=== PATIENT | female | born 1955 | race Caucasian/White ===

== ENCOUNTER → 2018-10-31 | Outpatient (CLI) | payer OTHER | LOC: CAT 07:44 | DX: J98.11 Atelectasis (principal); J47.9 Bronchiectasis, uncomplicated; J18.9 Pneumonia, unspecified organism; R91.1 Solitary pulmonary nodule; M25.78 Osteophyte, vertebrae; Z85.118 Personal history of other malignant neoplasm of bronchus and lung; Z90.49 Acquired absence of other specified parts of digestive tract ==

== ENCOUNTER 2018-11-25 05:41 | Outpatient (CLI) | payer OTHER ==
[~2018-11-25] VITALS: Ht 167.6 cm; Wt 71.7 kg
[~2018-11-25 05:41] MED LIST: ASPIRIN EC325 M1 PO; EAC VAG; ESTROGEN PO; GLUCOSAMINE HC500 MG PO; IBUPROFEN 200200 M1 PO; ONDANSETRON HCL4 M2 PO; PRENATAL PO; PROTONIX40 M1 PO; TESSALON PERLE100 MG PO
--- NOTE | 2018-11-26 16:06 | PATH ---
[facility] [address] [place] [address] PATHOLOGY RPT PROCEDURE Name: EMMA FLANNERY Room #: DEP Blaire ..#: [id number] ������������������ Admission: 11/25/18 ������������������ Date of : 51 Discharge: 11/25/18 Report #: [id number] Path Case #: [id number] Note LCA Accession Number: [id number] TESTS RESULT FLAG UNITS REF RANGE LAB Clinician Provided Cytology Information No. of containers..01 Other (Miscellaneous) Source: RLL BAL DIAGNOSIS: RLL BAL NEGATIVE FOR MALIGNANT CELLS. REACTIVE BRONCHIAL CELLS ARE PRESENT. PULMONARY MACROPHAGES (DUST CELLS) ARE PRESENT. Signed out by: Kylah Fried MD, Pathologist NPI- [id number] Performed by: Edmond Garza, City Mail Carrier ([facility]) Gross description: 01 10ML, PINK, CLOUDY /LCS FLAG LEGEND: L-Low Normal,H-High Normal,LL-Alert Low,HH-Alert High <-Panic Low,>-Panic High,A-Abnormal,AA-Critical Abnormal Performed at: [address] [place] [address] Zechariah Schulte MD, [address] [address] Kylah Fried MD, Performed at: [address], [place], [place] [id number] MD Zechariah Schulte MD Phone: [phone]
--- NOTE | 2018-11-26 16:06 | PATH ---
[facility] [address] [place] [address] PATHOLOGY RPT PROCEDURE Name: EMMA FLANNERY Room #: DEP ROLY ..#: [id number] ������������������ Admission: 11/25/18 ������������������ Date of : 51 Discharge: 11/25/18 Report #: [id number] Path Case #: [id number] Note LCA Accession Number: [id number] TESTS RESULT FLAG UNITS REF RANGE LAB Clinician Provided Cytology Information No. of containers..01 Other (Miscellaneous) Source: CYTO BRUSHTIP DIAGNOSIS: 02 BRONCHIAL BRUSHING, CYTO BRUSHTIP NEGATIVE FOR MALIGNANT CELLS. REACTIVE BRONCHIAL CELLS ARE PRESENT. PULMONARY MACROPHAGES (DUST CELLS) ARE PRESENT. Signed out by: Kylah Fried MD, Pathologist NPI- [id number] Performed by: Edmond Garza, Sales Development Coordinator ([facility]) Gross description: 01 20ML, COLORLESS, CLEAR /LCS FLAG LEGEND: L-Low Normal,H-High Normal,LL-Alert Low,HH-Alert High <-Panic Low,>-Panic High,A-Abnormal,AA-Critical Abnormal Performed at: [address] [place] [address] Zechariah Schulte MD, [address] [address] Kylah Fried MD, Performed at: [address], [place], [place] [id number] MD Zechariah Schutle MD Phone: [phone]
--- NOTE | 2018-11-27 10:09 | PATH ---
[facility] [address] [place] [address] PATHOLOGY RPT PROCEDURE Name: EMMA FLANNERY Room #: DEP [facility]..#: [id number] ������������������ Admission: 11/25/18 ������������������ Date of : 51 Discharge: 11/25/18 Report #: [id number] Path Case #: [id number] Note LCA Accession Number: [id number] TESTS RESULT FLAG UNITS REF RANGE LAB Clinician Provided Cytology Information No. of containers..01 Other (Miscellaneous) Source: BRONCH BRUSHING DIAGNOSIS: 02 BRONCH BRUSHING NEGATIVE FOR MALIGNANT CELLS. REACTIVE BRONCHIAL CELLS ARE PRESENT. PULMONARY MACROPHAGES (DUST CELLS) ARE PRESENT. Signed out by: 02 Kylah Fried MD, Pathologist NPI- [id number] Performed by: 01 Edmond Garza, Culture Manager ([facility]) FLAG LEGEND: L-Low Normal,H-High Normal,LL-Alert Low,HH-Alert High <-Panic Low,>-Panic High,A-Abnormal,AA-Critical Abnormal Performed at: [address] [place] [address] Zechariah Schulte MD, [address] [address] Kylah Fried MD, Specimen Comment: A courtesy copy of this report has been sent to Specimen Comment: [phone]. Specimen Comment: Report sent to Specimen Comment: A duplicate report has been generated due to demographic updates. Performed at: [address], [place], [place] [id number] MD Zechariah Schulte MD Phone: [phone]
== END 2018-11-25 10:15 | disposition home or self-care (01) ==
LOC: CATH 05:41 → TBA 05:41 → CATH 08:08 → GI 10:31
DX: J98.4 Other disorders of lung (principal); K21.9 Gastro-esophageal reflux disease without esophagitis; Z85.118 Personal history of other malignant neoplasm of bronchus and lung; Z90.49 Acquired absence of other specified parts of digestive tract; Z98.890 Other specified postprocedural states; Z79.899 Other long term (current) drug therapy; Z79.891 Long term (current) use of opiate analgesic
CPT/HCPCS: 62110; 62900; 70005

== ENCOUNTER → 2019-05-25 | Outpatient (CLI) | payer OTHER | LOC: RAD 08:58 | DX: M41.86 Other forms of scoliosis, lumbar region (principal) ==

== ENCOUNTER → 2019-06-04 | Outpatient (CLI) | payer OTHER | LOC: MRI 07:23 | DX: M51.26 Other intervertebral disc displacement, lumbar region (principal); M48.061 Spinal stenosis, lumbar region without neurogenic claudication; M25.78 Osteophyte, vertebrae; M89.38 Hypertrophy of bone, other site ==

== ENCOUNTER → 2019-06-19 | Outpatient (CLI) | payer OTHER ==
[~2019-06-19] VITALS: Ht 165.1 cm; Wt 73.5 kg
[~2019-06-19] MED LIST changes: +AMLODIPINE BESY10 MG PO; +VENTOLIN HFA 1818 GM INH
--- NOTE | ~2019-06-19 | HPC ---
[facility] [place] [address] PAIN MANAGEMENT CONSULTATION Name: EMMA FLANNERY Room #: REG [facility] Amadou#: [id number] Admission: 06/19/19 Attend Phys: Meron Juarez MD Discharge: Date of : 51 Report #: [id number] THIS REPORT FOR: //name// CC: Meron Torres DATE OF SERVICE: 06/19/2019 CHIEF COMPLAINT: Right hip and low back pain travels down the right knee, which is sharp, tingling and causes muscle cramps. HISTORY: The patient is a 64-year-old female who has been referred to the Pain Clinic for evaluation of back and leg pain. The patient states that in about 01/2019, she started to notice some increased pain and discomfort in her right hip, low back with pain that radiates down to her leg. She is normally pretty active. She engages in ballroom dancing bicycles and is quite active. She has noticed that use of nonsteroidal anti-inflammatory medications have not been significantly helpful. She has not tried narcotic medications. She has used some muscle relaxants because these caused her to feel sleepy. She has a history of gastric bypass and therefore she is unable to take significant amount of nonsteroidal anti-inflammatory medications. Notes that this pain involving her right hip with pain that radiates down the lateral portion of her leg into the knee. She has been experiencing some muscle cramps. She has tried Skelaxin as well as gabapentin. She has had surgery on her back. This was in 1992. It involves the L5 and S1 area. She has had physical therapy, did not notice any significant change. Chiropractic treatment has not caused significant benefit. She has used cupping. Has some pain and discomfort in the right thoracic area as well. Describes as constant, shooting, cramping, aching, sharp and stabbing. Rates it as a 10/10 at its worst. It is a 7/10 today. ALLERGIES: PENICILLIN, ANTIFUNGALS. CURRENT MEDICATIONS: Albuterol 2 puffs p.r.n., amlodipine 10 mg, glucosamine 500 mg, ibuprofen 200 mg p.r.n., vitamins, aspirin 325 mg at bedtime, vaginal cream, estrogen 0.5 tabs b.i.d., Zofran 4 mg for nausea and Protonix 40 mg. PAST MEDICAL HISTORY: Hypertension, lung disease, gallbladder disease, some stomach problems, joint disease, and cancer. PAST SURGICAL HISTORY: Tonsils and adenoids 1957, 1983, hysterectomy in 1996, laparoscopic cholecystectomy 1999, lumbar laminectomy L5-S1 1992, gastric bypass in 2015, and lobectomy in 2006. 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 Pain has been problematic in the past and caused her to be off from work up to [address] [place] [address] PAIN MANAGEMENT CONSULTATION Name: EMMA FLANNERY [facility] [id number] Admission: 06/19/19 Attend Phys: Meron Juarez MD Discharge: Date of : 51 Report #: [id number]. REVIEW OF SYSTEMS: Generally good health, fever, night sweats, fatigue, wears glasses, glaucoma/cataracts, chronic sinus problems, shortness of breath while lying flat, frequent coughs, asthma/wheezing, varicose veins, numbness and tingling sensation, insomnia, and cold intolerance. LABORATORY DATA: MRI of the lumbar spine dated 06/04/2019: 1. L2-L3, there is a circumferential disk bulge with facet hypertrophy and ligamentum flavum hypertrophy. There is no sequela. 2. L3-L4, there is diffuse circumferential bulging with a right posterior paracentral disk protrusion best seen on series 8. 3. This compresses the L4 nerve root as it exits the thecal sac, the L3-L4. The L3 nerve root is unaffected. There is some slight bilateral foraminal tapering and diffuse osteophytosis is present in association with the disk bulging. There is a severe facet hypertrophy and ligamentum flavum hypertrophy. There is central canal stenosis at the AP diameter of the midline of the thecal sac at 9 mm. A small annular tears associated with the right lateral disk. 4. L4-L5, there is circumferential disk bulge with right posterior lateral annular tear suspected and slight associated protrusion. This does not appear to be contacting the L4 nerve root, which is exiting the neural foramen there. There is severe facet hypertrophy and ligamentum flavum hypertrophy with central canal stenosis of approximately 9 mm. There is bilateral neural foraminal narrowing. 5. At L5-S1, there is a chronic posterior disk bulge protrusion/extrusion in the midline slightly compressing the anterior thecal sac with circumferential disk bulge and marginal osteophytosis. There is severe facet hypertrophy and ligamentum flavum hypertrophy. There has been a previous right laminectomy at this level and the AP diameter of the thecal sac is within normal limits. The L5-S1 nerve roots appear unaffected bilaterally. PAIN CLINIC ASSESSMENT/PQRS: 1. The patient has had back surgery. 2. The patient is not being treated for rheumatoid arthritis. 3. Height 5 feet 5 inches, weight 162 pounds, BMI is 27.0. 4. Vital signs: Blood pressure 155/76, pulse 85, respiratory rate 16, room air saturation 99%. 5. Pain intensity, 7/10. 6. Fall history: The patient has not fallen in the last 3 months. 7. Blood thinner. The patient is not on a blood thinning medication. 8. Hypertension. The patient is being treated for hypertension. 9. Opioids greater than 6 weeks. The patient is not being treated with opioids. 10. Risk assessment tool, low for opioid use. 11. Functional assessment tool, 49/70. 12. Recreational drug use. The patient denies. [address] [address] PAIN MANAGEMENT CONSULTATION Name: EMMA FLANNERY Room #: REG [facility]#: [id number] Admission: 06/19/19 Attend Phys: Meron Juarez MD Discharge: Date of : 51 Report #: [id number] 13. Tobacco: The patient has never smoked. 14. Alcohol: The patient drinks 2-3 alcoholic beverages daily. PHYSICAL EXAMINATION: GENERAL: The patient is a well-developed, well-nourished white female. Appears her stated age. She is alert and oriented x 3. Her affect is appropriate. Speech is fluent. HEENT: Normocephalic, atraumatic. Extraocular eye muscles intact. Sclerae nonicteric. Mucous membranes are moist. NECK: Without adenopathy or JVD. HEART: Regular rate. LUNGS: Generally clear to auscultation. Some decreased lung sounds in the right upper lobe. ABDOMEN: Nontender. EXTREMITIES: Upper extremity muscle strength is judged to be 5/5 for the major muscle groups in the upper extremity. Deep tendon reflexes are trace for the biceps and triceps. The patient is without significant kyphosis, scoliosis or lordosis. Well-healed scar in the lower portion of her back at the lumbar area. Left and right lateral bending did cause some increased low back discomfort. Rotation to the right cause some increased discomfort. The patient noted lumbar extension caused some increased pain that radiated down the posterior portion of her right leg. Anterior and posterior spring tests were negative. Demarco sign was negative. The patient has experienced some numbness that radiates down into the anterior portion of her calf into her foot with tingling and muscle cramping. IMPRESSION: 1. Lumbar radiculopathy, L4-L5 dermatomal distribution on the right. 2. Hypertension. 3. Lung disease. 4. Gallbladder disease. 5. Some stomach problems. 6. Joint disease. 7. Cancer. RECOMMENDATIONS: We discussed treatment options with the patient. The patient has clinical findings consistent with lumbar radiculopathy involving the L4-L5 dermatomal distribution. She has had lumbar surgery in the past in the L5-S1 area. Notes that the pain causes numbness and tingling in the L4-L5 dermatomal distribution with sensory changes. Notes a shooting pain, has been experiencing cramping pain. Rates the pain as a 10/10 when it is quite problematic. This has sharp and stabbing sensation as well. The patient has undergone physical therapy. She has had an MRI. She takes ibuprofen/nonsteroidal anti-inflammatory medications with limited to the use of these because of her gastric bypass. She would like to proceed with an epidural steroid injection. I think that would be the appropriate treatment at this juncture. [facility] and [address] [address] PAIN MANAGEMENT CONSULTATION Name: EMMA FLANNERY Room #: REG ROLY Tobar#: [id number] Admission: 06/19/19 Attend Phys: Meron Juarez MD Discharge: Date of : 51 Report #: [id number] benefits of the procedure had been discussed with the patient. They include but are not limited to infection, worsening of pain, no improvement in pain, nerve damage, spinal headache, bleeding, trauma with muscle paralysis. The patient elects to proceed. We will have the patient follow up in the near future after she has been precertified by her insurance marketing specialist. She will then undergo an epidural steroid injection. We would like to thank you for letting us participate in her care. We hope she continues to improve. By: [id number] Meron Juarez MD /meena
[2019-06-19 12:39] VITALS: BP 156/77
--- NOTE | 2019-06-19 13:00 | NUR ---
Pain Clinic Assessment: 1. History of Osteoarthritis: BACK History of Rheumatoid Arthritis: Not Applicable 2. Height: 5 ft. 5 in. 165.1 cm. Weight: 162.0 lb. oz. 73.483 kg. Patient's BMI: 27.0 3. Vital Signs: BP: 156/77 Pulse: 85 Resp: 16 Temp: 02 Sat: 99 ECG Mon: 4. Pain Intensity: 7 5. Fall Risk: Dizziness: Y Needs help standing or walking: N Fallen in the last 3 months: N Fall risk comments: 6. Patient on Blood Thinner: None 7. History of Hypertension: Y 8. Opioid Therapy greater than 6 weeks: N Opiate Contract Signed: 9. Risk Assessment Tool Provided: LOW RISK 0/3 10. Functional Assessment Tool: 49/70 11. Recreational Drug Use: Never Drug Type: Tobacco Use: Never Smoker Tobacco Type: Amount or Packs/day: How Many Years: Alcohol Use: Yes Frequency: Daily Quant: 2-3
== END ==
LOC: PAIN 09:00
DX: M54.16 Radiculopathy, lumbar region (principal); I10 Essential (primary) hypertension; J98.4 Other disorders of lung; M25.9 Joint disorder, unspecified; C80.1 Malignant (primary) neoplasm, unspecified; Z88.8 Allergy status to other drugs, medicaments and biological substances; Z79.899 Other long term (current) drug therapy; Z88.0 Allergy status to penicillin

== ENCOUNTER → 2019-07-29 | Outpatient (CLI) | payer OTHER ==
[~2019-07-29] VITALS: Ht 165.1 cm; Wt 73.6 kg
[2019-07-29 13:48] VITALS: BP 145/92
--- NOTE | 2019-07-29 13:57 | NUR ---
Pain Clinic Assessment: 1. History of Osteoarthritis: BACK History of Rheumatoid Arthritis: Not Applicable 2. Height: 5 ft. 5 in. 165.1 cm. Weight: 162.2 lb. oz. 73.573 kg. Patient's BMI: 27.0 3. Vital Signs: BP: 145/92 Pulse: 89 Resp: 14 Temp: 02 Sat: 99 ECG Mon: 4. Pain Intensity: 8 5. Fall Risk: Dizziness: N Needs help standing or walking: N Fallen in the last 3 months: N Fall risk comments: 6. Patient on Blood Thinner: None 7. History of Hypertension: Y 8. Opioid Therapy greater than 6 weeks: N Opiate Contract Signed: 9. Risk Assessment Tool Provided: LOW RISK 0/3 10. Functional Assessment Tool: 49/70 11. Recreational Drug Use: Never Drug Type: Tobacco Use: Never Smoker Tobacco Type: Amount or Packs/day: How Many Years: Alcohol Use: Yes Frequency: Quant:
--- NOTE | 2019-08-28 08:25 | HPC ---
[facility] [address] [place] [address] PAIN MANAGEMENT CONSULTATION Name: EMMA FLANNERY Room #: REG J[facility]laire Tobar#: [id number] Admission: 07/29/19 Attend Phys: Meron Juarez MD Discharge: Date of : 51 Report #: [id number] THIS REPORT FOR: //name// CC: Meron Torres DATE OF SERVICE: 07/29/2019 CHIEF COMPLAINT: Pain in the low back that goes down to the right buttocks. HISTORY: The patient is a 64-year-old female who has been seen in the pain clinic because of chronic pain. She has been having pain, which has been problematic since 12/2018. She has been having pain that radiates down into her leg. She is quite active with ballroom dancing, bicycling, and other activities. She has undergone an injection in the mid back area and noted some improvement in her pain. She has been using nonsteroidal anti-inflammatory medications. She has a history of back surgery. This was in 1992. Today, she has returned because of the pain that has been problematic in the anterior portion of her leg on the right side. Epidural steroid injection was beneficial and she has returned today with hopes of undergoing another injection to help decrease the pain and discomfort. ALLERGIES: PENICILLIN. CURRENT MEDICATIONS: Antifungals. PAIN CLINIC ASSESSMENT AND PQRS: 1. The patient has had back surgery. She is not being treated for rheumatoid arthritis. 2. Height 5 feet 5 inches, weight 162 pounds, BMI is 27. 3. Vital signs: Blood pressure 145/92, pulse 89, respiratory rate 14, room air saturation 99%. 4. Pain intensity, 10. 5. Fall risk, the patient has not fallen in the last 3 months. 6. Blood thinner, the patient is not on a blood thinning medication. 7. Risk assessment tool, low for opioid use. 8. Functional assessment tool, 49/70. 9. Recreational drugs, the patient denies. 10. Tobacco, the patient has never smoked. 11. Alcohol, the patient occasionally drinks alcoholic beverages. PHYSICAL EXAMINATION: GENERAL: The patient is a well-developed, well-nourished, white female. Appears her stated age. She is alert and oriented x 3. Her affect is appropriate. Speech is fluent. HEENT: Normocephalic, atraumatic. Extraocular [place] [address] PAIN MANAGEMENT CONSULTATION Name: EMMA FLANNERY Room #: REG CL[facility] Amadou#: [id number] Admission: 07/29/19 Attend Phys: Meron Juarez MD Discharge: Date of : 51 Report #: [id number] nonicteric. Mucous membranes are moist. NECK: Without adenopathy or JVD. LUNGS: Clear to auscultation. ABDOMEN: Nontender. EXTREMITIES: Upper extremity muscle strength judged to be 5/5 for the major muscle groups in the upper extremity. The patient is without significant scoliosis, kyphosis or lordosis. The patient has a well-healed scar in the upper portion of her back. She notes some discomfort with rotation to the right. The patient has pain and discomfort in the lower portion of her back that mirrors the L4-L5 dermatomal distribution. IMPRESSION: 1. Lumbar radiculopathy, L4-L5. 2. Hypertension. 3. Lung disease. 4. Gallbladder disease. 5. Stomach problems. 6. Joint disease. 7. Cancer. RECOMMENDATIONS: We discussed treatment options with the patient. Risks and benefits of an epidural steroid injection were discussed. Possible complications of the procedure, which could include but are not limited to infection, worsening pain, no improvement in pain and the patient elects to proceed. PROCEDURE NOTE: The patient has pain in the low back area. She also has had pain in the anterior portion of her thigh. This is in the L2-L3 area. The last injection at this site was beneficial and the patient feels that the anterior pain in the L2-L3 area is most problematic today. We would therefore proceed with an epidural steroid injection at the L2-L3 area. The patient was then taken to the procedure area. She was then assisted in getting on the examination table. Her back was sterilely prepped with a Betadine solution. It was allowed to dry. A 17-gauge Tuohy with loss of resistance technique was used to gain access to the L2-L3 interspace and the L1-L2 interspace. This area had been infiltrated with 0.25% bupivacaine. A 17-gauge Tuohy with loss of resistance technique was used to gain access to the epidural space. There was no CSF, heme or paresthesia. Total of 80 mg Depo-Medrol, 40 mg triamcinolone and 2 mL of 0.25% bupivacaine was injected. The patient tolerated the procedure well. There were no complications. Remained in the pain clinic for an appropriate amount of time. [facility] [address] [place] [address] PAIN MANAGEMENT CONSULTATION Name: EMMA FLANNERY Room #: REG ROLY Tobar#: [id number] Admission: 07/29/19 Attend Phys: Meron Juarez MD Discharge: Date of : 51 Report #: [id number] We would like to thank you for letting us participate in her care. We hope she continues to improve. The patient will call us if she has any concerns. <ELECTRONICALLY SIGNED> By: Meron Juarez MD 08/28/19 0825 [id number] Meron Juarez MD /[facility]
== END | disposition home or self-care (01) ==
LOC: PAIN 13:12
DX: M54.5 Low back pain (principal); G89.29 Other chronic pain; Z88.0 Allergy status to penicillin; Z88.8 Allergy status to other drugs, medicaments and biological substances; Z79.82 Long term (current) use of aspirin; Z79.899 Other long term (current) drug therapy

== ENCOUNTER → 2019-09-16 | Outpatient (CLI) | payer OTHER ==
[~2019-09-16] VITALS: Ht 165.1 cm; Wt 71.3 kg
[~2019-09-16] MED LIST changes: +TRELEGY ELLIPT1 EACH INH
[2019-09-16 08:45] VITALS: BP 133/79
--- NOTE | 2019-09-16 09:11 | NUR ---
Pain Clinic Assessment: 1. History of Osteoarthritis: BACK History of Rheumatoid Arthritis: Not Applicable 2. Height: 5 ft. 5 in. 165.1 cm. Weight: 157.2 lb. oz. 71.305 kg. Patient's BMI: 26.2 3. Vital Signs: BP: 133/79 Pulse: 85 Resp: 14 Temp: 02 Sat: 100 ECG Mon: 4. Pain Intensity: 8 5. Fall Risk: Dizziness: N Needs help standing or walking: N Fallen in the last 3 months: N Fall risk comments: 6. Patient on Blood Thinner: None 7. History of Hypertension: Y 8. Opioid Therapy greater than 6 weeks: N Opiate Contract Signed: 9. Risk Assessment Tool Provided: LOW RISK 0/3 10. Functional Assessment Tool: 49/70 11. Recreational Drug Use: Never Drug Type: Tobacco Use: Never Smoker Tobacco Type: Amount or Packs/day: How Many Years: Alcohol Use: Yes Frequency: Quant:
--- NOTE | 2019-09-21 19:28 | HPC ---
[facility] [place] [address] PAIN MANAGEMENT CONSULTATION Name: EMMA FLANNERY Room #: REG Blaire Tobar#: [id number] Admission: 09/16/19 Attend Phys: Meron Juarez MD Discharge: Date of : 51 Report #: [id number] THIS REPORT FOR: //name// CC: Meron Torres DATE OF SERVICE: 09/16/2019 CHIEF COMPLAINT: The pain in the right groin area has improved, but I am still having pain down in the right leg. HISTORY: The patient is a 64-year-old female who has been seen in the pain clinic because of pain. She noticed onset of her discomfort in 12/2018. Pain was radiating down into her right leg into the groin area and anterior thigh. She underwent an epidural steroid injection at the last visit. She noticed that has improved pain and discomfort she was having in the groin and anterior thigh area. She is still having pain down the right lateral portion of her thigh with numbness, weakness and tenderness. She has returned today with the hopes of undergoing another injection. She feels that the injection in this area would be helpful and decreasing the amount of pain and discomfort. She states that because of the last injection. She is able to ambulate easier. She looks less like she is walking cripple. ALLERGIES: PENICILLIN. MEDICATIONS: Antifungals. PAIN CLINIC AND PQRS: 1. History of osteoarthritis in the back. The patient is not being treated for rheumatoid arthritis. 2. Height 5 feet 5 inches, weight 157 pounds, BMI is 26.2. 3. Vital Signs: Blood pressure 133/79, pulse 85, respiratory rate 14, room air saturation 100%. 4. Pain intensity 05/30. 5. Fall risk. The patient has not fallen in the last 3 months. 6. Blood thinner. The patient is not on a blood thinning medication. 7. Hypertension. The patient is being treated for hypertension. 8. Opioids greater than 6 weeks. The patient is not receiving opioids on a regular basis. 9. Risk assessment tool, low for opioid use. 10. Functional assessment tool 49/70. 11. Recreational drug use: The patient denies. 12. Tobacco: The patient has never smoked. 13. Alcohol: The patient occasionally drinks alcoholic beverages. PHYSICAL EXAMINATION: [address] [address] PAIN MANAGEMENT CONSULTATION Name: EMMA FLANNERY Room #: REG [facility]#: [id number] Admission: 09/16/19 Attend Phys: Meron Juarez MD Discharge: Date of : 51 Report #: [id number] GENERAL: The patient is a well-developed, well-nourished white female. Appears her stated age. She is alert and oriented x 3. Her affect is appropriate. Speech is fluent. HEENT: Normocephalic, atraumatic. Extraocular eye muscles intact. Sclerae nonicteric. Mucous membranes are moist. NECK: Without adenopathy or JVD. LUNGS: Clear to auscultation. ABDOMEN: Nontender. EXTREMITIES: Upper extremity muscle strength judged to be 5/5 for the major muscle groups in the upper extremity. The patient has had resolution of pain and discomfort in the anterior groin area on the right and anterior thigh. Does have pain and discomfort that continues to radiate down the right lateral portion of her leg and in the area of her knee. This is in the L4-L5 dermatomal distribution. IMPRESSION: 1. Lumbar radiculopathy -- The patient is status post lumbar surgery in the past. 2. Hypertension. 3. Lung disease. 4. Gallbladder disease. 5. Stomach problems. 6. Joint disease. 7. Cancer. RECOMMENDATIONS: We discussed treatment options with the patient. Risks and benefits of an epidural steroid injection using transforaminal approach were discussed. Possible complications of the procedure, which could include, but are not limited to infection, worsening pain, no improvement in pain and the patient elects to proceed. PROCEDURE NOTE: The patient was taken to the procedure area. She was then assisted in getting on examination table. Her back was sterilely prepped with a Betadine solution. A 0.25% bupivacaine was infiltrated in the right L4-L5 interspace. After appropriate anesthetizing the area. A 20-gauge spinal needle was then advanced into the area of the transforaminal area. After appropriate placement using anterior, posterior viewing a total of 80 mg Depo-Medrol, 40 mg triamcinolone was injected. This area had been anesthetized with 0.25% bupivacaine. The patient tolerated the procedure well. There were no complications. 12 seconds of fluoroscopy time was used. The patient's pain decreased to 0 at the time of discharge. She will follow up in the future as needed. [address] [address] PAIN MANAGEMENT CONSULTATION Name: ALMA DELIAEMMA Frankie Room #: REG ROLY Tobar#: [id number] Admission: 09/16/19 Attend Phys: Meron Juarez MD Discharge: Date of : 51 Report #: [id number] We would like to thank you for letting us participate in her care. We hope she continues to improve. <ELECTRONICALLY SIGNED> By: Meron Juarez MD 09/21/19 1928 1324 1614 Meron Juarez MD /[facility]
== END | disposition home or self-care (01) ==
LOC: PAIN 09-02 10:20
DX: M54.16 Radiculopathy, lumbar region (principal); G89.29 Other chronic pain; I10 Essential (primary) hypertension; M19.90 Unspecified osteoarthritis, unspecified site; Z98.890 Other specified postprocedural states; Z79.899 Other long term (current) drug therapy; Z87.19 Personal history of other diseases of the digestive system; Z88.0 Allergy status to penicillin; Z79.82 Long term (current) use of aspirin

== ENCOUNTER → 2019-09-30 | Outpatient (CLI) | payer OTHER ==
[~2019-09-30] VITALS: Ht 165.1 cm; Wt 71.5 kg
[2019-09-30 09:56] VITALS: BP 154/90
--- NOTE | 2019-09-30 10:20 | NUR ---
Pain Clinic Assessment: 1. History of Osteoarthritis: BACK Right Lower Extremity Left Upper Extremity Left Lower Extremity Right Upper Extremity History of Rheumatoid Arthritis: Not Applicable 2. Height: 5 ft. 5 in. 165.1 cm. Weight: 157.6 lb. oz. 71.487 kg. Patient's BMI: 26.2 3. Vital Signs: BP: 154/90 Pulse: 80 Resp: 14 Temp: 02 Sat: 100 ECG Mon: 4. Pain Intensity: 7 5. Fall Risk: Dizziness: N Needs help standing or walking: N Fallen in the last 3 months: N Fall risk comments: 6. Patient on Blood Thinner: None 7. History of Hypertension: Y 8. Opioid Therapy greater than 6 weeks: N Opiate Contract Signed: 9. Risk Assessment Tool Provided: LOW RISK 0/3 10. Functional Assessment Tool: 49/70 11. Recreational Drug Use: Never Drug Type: Tobacco Use: Never Smoker Tobacco Type: Amount or Packs/day: How Many Years: Alcohol Use: Yes Frequency: Quant:
--- NOTE | 2019-10-07 13:08 | HPC ---
[facility] [address] [address] PAIN MANAGEMENT CONSULTATION Name: EMMA FLANNERY Room #: REG JACKBlaire Tobar#: [id number] Admission: 09/30/19 Attend Phys: Meron Juarez MD Discharge: Date of : 51 Report #: [id number] THIS REPORT FOR: //name// CC: Meron Torres DATE OF SERVICE: 09/30/2019 CHIEF COMPLAINT: Having pain in the right side and pain that is down in the right knee with a buzzing sensation, some numbness and weakness. HISTORY: The patient is a 64-year-old female who has been followed in the pain clinic. She has pain in the low back area. She has had back surgery in the past. She has returned today indicating that she continues to have some pain, which is problematic. Pain has been most problematic since 12/2018. Continues to have pain that radiates down into her leg. She still remains active. 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 Has some pain in the right posterior back area as well as some pain that radiates in the anterior portion near the groin area. This pain is different from that which is radiating down into her right knee. The right knee is most problematic with some numbness, tingling and sensory changes. She has returned today with hopes of undergoing an epidural steroid injection. She gleaned benefit from the last and would like to proceed with another injection to gain more benefit. ALLERGIES: PENICILLIN. CURRENT MEDICATIONS: Antifungals. PAIN CLINIC ASSESSMENT AND PQRS: 1. The patient has had back surgery. She is not being treated for rheumatoid arthritis. 2. Height 5 feet 5 inches, weight 157 pounds, BMI is 26.1. 3. Vital signs: Blood pressure 154/90, pulse 80, respiratory rate 14, room air saturation 100%. 4. Pain intensity, 7/10. 5. Fall history, the patient has not fallen in the last 3 months. 6. Blood thinner, the patient is not on a blood thinning medication. 7. Hypertension, the patient is being treated for hypertension. 8. Opioids greater than 6 weeks. The patient received medication from one source, the pain clinic. 9. Risk assessment tool, low for opioid use. 10. Functional assessment tool, 49/70. 11. Recreational drug use, the patient denies. 12. Tobacco, the patient has never smoked. 13. Alcohol, the patient occasionally drinks alcoholic beverages. [facility] [address] [place] [address] PAIN MANAGEMENT CONSULTATION Name: EMMA FLANNERY [facility] #: [facility] [id number] Admission: 09/30/19 Attend Phys: Meron Juarez MD Discharge: Date of : 51 Report #: [id number] PHYSICAL EXAMINATION: GENERAL: The patient is a well-developed, well-nourished, white female. Appears her stated age. She is alert and oriented x 3. Her affect is appropriate. Speech is fluent. HEENT: Normocephalic, atraumatic. Extraocular eye muscles intact. The patient is wearing glasses. NECK: Without adenopathy or JVD. LUNGS: Clear to auscultation. ABDOMEN: Nontender. MUSCULOSKELETAL: Upper extremity muscle strength judged to be 5/5 for the major muscle groups in the upper extremity. The patient has some pain, which was in the anterior groin area. This pain improved after the last injection. The patient does have some pain in the posterior superior iliac spine area. Palpation in this area does reproduce some triggerpoint like pain and discomfort. Notes some pain and discomfort with a trigger point like pain in the anterior superior spinal area. The patient has some pain radiates down the right lateral portion of her leg with some numbness, tingling in the L4-L5 dermatomal distribution. Has a buzzing and tingling sensation in her knee. IMPRESSION: 1. Lumbar radiculopathy, status post lumbar surgery in the past. 2. Hypertension. 3. Lung disease. 4. Gallbladder disease. 5. Stomach problems. 6. Joint disease. 7. Cancer history. RECOMMENDATIONS: We discussed treatment options with the patient. Risks and benefits of a transforaminal epidural steroid injection were again discussed. Possible complications of the procedure, which could include infection, bleeding, muscle pain, nerve damage were discussed. The patient elects to proceed. PROCEDURE NOTE: The patient was taken to the procedure area. She was then assisted in getting on examination table. Her back was sterilely prepped with a Betadine solution. A 0.25% bupivacaine was infiltrated in the right L4-L5 area. A transforaminal approach was undertaken. Fluoroscopy using anterior, posterior as well as lateral viewing were implemented. The patient tolerated the procedure well. The area was sterilely prepped. A 0.25% bupivacaine was infiltrated in the skin to numb it using a 25-gauge needle. A 20-gauge spinal needle was then advanced using the transforaminal approach into the appropriate positioning. There was no complaint of nerve damage or paresthesias. Aspiration was negative. Total of 80 mg Depo-Medrol and 3 mL of 0.25% bupivacaine was injected. The patient tolerated the procedure well. There were [facility] [address] [place] [address] PAIN MANAGEMENT CONSULTATION Name: EMMA FLANNERY Room #: REG [facility]#: [id number] Admission: 09/30/19 Attend Phys: Meron Juarez MD Discharge: Date of : 51 Report #: [id number] no complications. Her pain was described as 0 at the time of discharge. She will follow up in the future as needed. We would like to thank you for letting us participate in her care. We hope she continues to improve. <ELECTRONICALLY SIGNED> By: Meron Juarez MD 10/07/19 1308 1314 20 Meron Juarez MD /[facility]
== END | disposition home or self-care (01) ==
LOC: PAIN 06:54
DX: M54.16 Radiculopathy, lumbar region (principal); I10 Essential (primary) hypertension; J98.4 Other disorders of lung; Z85.9 Personal history of malignant neoplasm, unspecified; Z88.0 Allergy status to penicillin; Z79.899 Other long term (current) drug therapy; Z88.8 Allergy status to other drugs, medicaments and biological substances; Z79.82 Long term (current) use of aspirin

== ENCOUNTER → 2019-11-13 | Outpatient (CLI) | payer OTHER ==
[~2019-11-13] VITALS: Ht 165.1 cm; Wt 71.6 kg
--- NOTE | ~2019-11-13 | HPC ---
[facility] [address] [address] PAIN MANAGEMENT CONSULTATION Name: EMMA FLANNERY Room #: REG Blaire Nieves.#: [id number] Admission: 11/13/19 Attend Phys: Meron Juarez MD Discharge: Date of : 51 Report #: [id number] THIS REPORT FOR: //name// CC: Meron Torres DATE OF SERVICE: 11/13/2019 CHIEF COMPLAINT: Pain in the right hip with pain radiating down to the knee. HISTORY: The patient is a 64-year-old female who has been followed in the pain clinic. She has pain in the low back area involving her right hip and right knee today. She notes that the pain radiates down into this area. Walking has become more problematic. She has had problems since 01/2019. Pain is involves the right buttocks, right hip and right knee. She describes it as shooting, cramping, aching, sharp, stabbing discomfort. Also, perceives a buzzing sensation. She rates her pain as a 7/10. This pain has caused some problems with her day-to-day living and activities. She has undergone epidural steroid injections in the past and these have provided benefit. She would like to proceed with another injection. ALLERGIES: PENICILLIN. CURRENT MEDICATIONS: ____, Trelegy Ellipta 100/62.5/25, albuterol inhaler 2 puffs, amlodipine 10 mg, lacosamide 500 mg, chewable vitamins, Estrace 0.5 mg, Zofran 4 mg and Protonix 40 mg. The patient was taking ibuprofen, stopped this medication secondary to gastrointestinal upset. PAIN CLINIC ASSESSMENT AND PQRS: 1. The patient has had back surgery. She is not being treated for rheumatoid arthritis. 2. Height 5 feet 5 inches, weight 157 pounds, BMI is 26.3. 3. Vital signs; blood pressure 134/74, pulse 99, respiratory rate 14, room air saturation 100%. 4. Pain intensity 04/29. 5. Fall history: The patient has not fallen in the last 3 months. 6. Blood thinner. The patient is not on a blood thinning medication. 7. Hypertension. The patient is being treated for hypertension. 8. Opioids greater than 6 weeks. 9. Risk assessment tool, low for opioid use. 10. Functional assessment tool 49/70. 11. Recreational drugs: The patient denies. 12. Tobacco: The patient has never smoked. 13. Alcohol: The patient occasionally drinks alcoholic beverages. PHYSICAL EXAMINATION: [facility] [address] [place] [address] PAIN MANAGEMENT CONSULTATION Name: EMMA FLANNERY Room #: REG [facility]#: [id number] Admission: 11/13/19 Attend Phys: Meron Juarez MD Discharge: Date of : 51 Report #: [id number] GENERAL: The patient is a well-developed, well-nourished white female. Appears her stated age. She is alert and oriented x 3. Her affect is appropriate. Speech is fluent. HEENT: Normocephalic, atraumatic. Extraocular eye muscles intact. The patient is wearing glasses. NECK: Without adenopathy or JVD. LUNGS: Clear to auscultation. ABDOMEN: Nontender. EXTREMITIES: Upper extremity muscle strength judged to be 5/5 for the major muscle groups in the upper extremity. The patient has some pain and discomfort in the anterior groin area. She has some pain along the L3-L4 dermatomal distribution. She has some pain in the back area. IMPRESSION: 1. Lumbar radiculopathy in the L3-L4 dermatomal distribution on the right. 2. Lumbar radiculopathy, status post lumbar surgery in the past. 3. Hypertension. 4. Lung disease. 5. Gallbladder disease. 6. Stomach problems. 7. Joint disease. 8. Cancer history. RECOMMENDATIONS: We discussed treatment options with the patient. Risks and benefits of a transforaminal epidural steroid injection were again discussed. The possible complication of the procedure, which could include but are not limited to infection, worsening pain, no improvement in pain were discussed and the patient elects to proceed. PROCEDURE NOTE: The patient was taken to the procedure area. She was then assisted in getting on the examination table. Her back was sterilely prepped with a Betadine solution. A 0.25% bupivacaine was infiltrated at the L3-L4 interspace using the transforaminal approach. After appropriate placement using fluoroscopy a 0.25% bupivacaine had been used to anesthetize the area. Total of 80 mg Depo-Medrol, 40 mg triamcinolone and 2 mL of 0.25% bupivacaine was injected. The patient tolerated the procedure well. There were no complications. Her pain decreased from 7 to 0 at the time of discharge. She will follow up in the future as needed. We would like to thank you for letting us participate in her care. We hope she continues to improve. By: [id number] Meron Juarez MD /meena
[2019-11-13 10:03] VITALS: BP 134/74
--- NOTE | 2019-11-13 10:26 | NUR ---
Pain Clinic Assessment: 1. History of Osteoarthritis: BACK Right Lower Extremity Left Upper Extremity Left Lower Extremity Right Upper Extremity History of Rheumatoid Arthritis: Not Applicable 2. Height: 5 ft. 5 in. 165.1 cm. Weight: 157.8 lb. oz. 71.578 kg. Patient's BMI: 26.3 3. Vital Signs: BP: 134/74 Pulse: 99 Resp: 14 Temp: 02 Sat: 100 ECG Mon: 4. Pain Intensity: 7 5. Fall Risk: Dizziness: N Needs help standing or walking: N Fallen in the last 3 months: N Fall risk comments: 6. Patient on Blood Thinner: None 7. History of Hypertension: Y 8. Opioid Therapy greater than 6 weeks: N Opiate Contract Signed: 9. Risk Assessment Tool Provided: LOW RISK 0/3 10. Functional Assessment Tool: 49/70 11. Recreational Drug Use: Never Drug Type: Tobacco Use: Never Smoker Tobacco Type: Amount or Packs/day: How Many Years: Alcohol Use: Yes Frequency: Daily Quant: wine
== END | disposition home or self-care (01) ==
LOC: PAIN 06:39
DX: M54.16 Radiculopathy, lumbar region (principal); G89.29 Other chronic pain; I10 Essential (primary) hypertension; M19.90 Unspecified osteoarthritis, unspecified site; Z98.890 Other specified postprocedural states; Z79.899 Other long term (current) drug therapy; Z90.49 Acquired absence of other specified parts of digestive tract; Z88.0 Allergy status to penicillin; Z87.19 Personal history of other diseases of the digestive system

== ENCOUNTER → 2019-11-26 | Outpatient (CLI) | payer OTHER | LOC: RAD 07:11 | DX: J98.4 Other disorders of lung (principal); R06.00 Dyspnea, unspecified ==

== ENCOUNTER → 2019-12-09 | Outpatient (CLI) | payer OTHER ==
[2019-12-09 15:11] LABS: CREATININE 0.7 mg/dL (0.6-1.0)
== END ==
LOC: CAT 12-02 14:52
PROVIDERS: Internal Medicine
DX: J98.11 Atelectasis (principal); J98.4 Other disorders of lung; I51.7 Cardiomegaly; I25.10 Atherosclerotic heart disease of native coronary artery without angina pectoris; K76.0 Fatty (change of) liver, not elsewhere classified; Z85.118 Personal history of other malignant neoplasm of bronchus and lung

== ENCOUNTER → 2019-12-11 | Outpatient (CLI) | payer OTHER ==
[~2019-12-11] VITALS: Ht 165.1 cm; Wt 70.5 kg
[~2019-12-11] MED LIST changes: +PROAIR HFA8.5 GM INH
[2019-12-11 09:56] VITALS: BP 148/91
--- NOTE | 2019-12-11 10:17 | NUR ---
Pain Clinic Assessment: 1. History of Osteoarthritis: BACK Right Lower Extremity Left Upper Extremity Left Lower Extremity Right Upper Extremity History of Rheumatoid Arthritis: Not Applicable 2. Height: 5 ft. 5 in. 165.1 cm. Weight: 155.4 lb. oz. 70.489 kg. Patient's BMI: 25.9 3. Vital Signs: BP: 148/91 Pulse: 105 Resp: 16 Temp: 02 Sat: 98 ECG Mon: 4. Pain Intensity: 4 5. Fall Risk: Dizziness: N Needs help standing or walking: N Fallen in the last 3 months: N Fall risk comments: 6. Patient on Blood Thinner: None 7. History of Hypertension: Y 8. Opioid Therapy greater than 6 weeks: N Opiate Contract Signed: 9. Risk Assessment Tool Provided: LOW RISK 0/3 10. Functional Assessment Tool: 49 11. Recreational Drug Use: Never Drug Type: Tobacco Use: Never Smoker Tobacco Type: Amount or Packs/day: How Many Years: Alcohol Use: Yes Frequency: Quant:
--- NOTE | 2019-12-31 13:51 | HPC ---
[facility] [place] [address] PAIN MANAGEMENT CONSULTATION Name: EMMA FLANNERY Room #: REG [facility]#: [id number] Admission: 12/11/19 Attend Phys: Meron Juarez MD Discharge: Date of : 51 Report #: [id number] THIS REPORT FOR: cc: Wild Torres MD,Wild Juarez,Meron Gu MD ~ CC: Meron Torres DATE OF SERVICE: 12/11/2019 PRIMARY CARE PHYSICIAN: Wild Torres MD CHIEF COMPLAINT: Pain in the right groin area and down in the anterior portion of my thigh. HISTORY: The patient is a 64-year-old female who has been followed in the pain clinic. As you may recall, she has had some pain and discomfort in her anterior thigh on the right side. She has undergone epidural steroid injection at the L2-L3 area. She has found that this has been beneficial. She would like to proceed with another epidural steroid injection. She has had no complications from the procedure. She does have some pain in the groin area as well. She tries to stay active. As you recall, she is a nurse. She has returned today with the hope of undergoing another injection. The last injection was beneficial. ALLERGIES: PENICILLIN. CURRENT MEDICATIONS: 1. Trelegy Ellipta 100/62.5/25. 2. Albuterol inhaler 2 puffs. 3. Amlodipine 10 mg, lacosamide 500 mg, vitamins, Estrace 0.5 mg, Zofran 4 mg and Protonix 40 mg. The patient has taken ibuprofen in the past, but noticed some GI upset. PAIN CLINIC ASSESSMENT AND PQRS: 1. The patient has osteoarthritic changes in her back, right lower back, left upper extremity, right lower extremity. The patient has pain that is radiating down into her right foot with cramping and shooting into her foot. Height 5 feet 5 inches, weight 155 pounds, BMI is 25.9. 2. Vital signs: Blood pressure 148/91, pulse 105, respiratory rate 16, room air saturation 98%. 3. Pain intensity 01/28. 4. Fall history: The patient has not fallen in the last 3 months. 5. Blood thinner. The patient is not on a blood thinning medication. 6. Hypertension. The patient is being [place] [address] PAIN MANAGEMENT CONSULTATION Name: EMMA FLANNERY Room #: REG [facility]#: [id number] Admission: 12/11/19 Attend Phys: Meron Juarez MD Discharge: Date of : 51 Report #: [id number] 7. Opioids greater than 6 weeks. The patient received medication from one source, the pain clinic. 8. Risk assessment tool, low for opioid use. 9. Functional assessment tool 49/70. 10. Recreational drug use: The patient denies. 11. Tobacco: The patient has never smoked. 12. Alcohol. The patient denies use of alcoholic beverages. PHYSICAL EXAMINATION: GENERAL: The patient is a well-developed, well-nourished white female. Appears her stated age. She is alert and oriented x 3. Her affect is appropriate. Speech is fluent. HEENT: Normocephalic, atraumatic. Extraocular eye muscles intact. Sclerae nonicteric. Mucous membranes are moist. NECK: Without adenopathy or JVD. LUNGS: Clear to auscultation. ABDOMEN: Nontender. MUSCULOSKELETAL: Upper extremity muscle strength judged to be 5-/5 for the major muscle groups in the upper extremity. The patient has pain and discomfort in the anterior groin area. Has pain in the area of the L3-L4 dermatomal distribution. IMPRESSION: 1. Lumbar radiculopathy in the L3-L4 dermatomal distribution on the right side. 2. Lumbar radiculopathy, status post lumbar surgery in the past. 3. Hypertension. 4. Lung disease. 5. Gallbladder disease. 6. Stomach problems. 7. Joint disease. 8. Cancer history. RECOMMENDATIONS: We discussed treatment options with the patient. Risks and benefits of an epidural steroid injection were discussed. Possible complication of the procedure, which could include but are not limited to, infection were discussed. The patient elects to proceed. PROCEDURE NOTE: The patient was taken to the procedure area. She was then assisted in getting on examination table. Her back was sterilely prepped with a Betadine solution at the L3-L4 area. A 0.25% bupivacaine was infiltrated at this level. Fluoroscopy using anterior, posterior as well as lateral viewing were implemented. A 17-gauge Tuohy with loss of resistance technique was used to gain access to the epidural space at the L3-L4 area. A total of 80 mg Depo-Medrol, 40 mg triamcinolone and 2 mL of 0.25% bupivacaine was injected. The patient tolerated the procedure well. There were no complications. A total of 18 seconds using the transforaminal approach at the L3-L4 areas was [facility] [address] [place] [address] PAIN MANAGEMENT CONSULTATION Name: EMMA FLANNERY Room #: REG ROLY Tobar#: [id number] Admission: 12/11/19 Attend Phys: Meron Juarez MD Discharge: Date of : 51 Report #: [id number] undertaken. The patient remained in the pain clinic for an appropriate amount of time. She will follow up in the future as needed. We would like to thank you for letting us participate in her care. The patient will call us if she has any concerns. <ELECTRONICALLY SIGNED> By: Meron Juarez MD 12/31/19 1351 0954 1534 Meron Juarez MD /[facility]
== END | disposition home or self-care (01) ==
LOC: PAIN 06:42
DX: M54.16 Radiculopathy, lumbar region (principal); G89.29 Other chronic pain; I10 Essential (primary) hypertension; M19.90 Unspecified osteoarthritis, unspecified site; Z98.890 Other specified postprocedural states; Z79.899 Other long term (current) drug therapy; Z87.19 Personal history of other diseases of the digestive system; Z88.0 Allergy status to penicillin

== ENCOUNTER → 2019-12-22 | Outpatient (CLI) | payer OTHER ==
[~2019-12-22] VITALS: Ht 165.1 cm; Wt 66.7 kg
[2019-12-22 08:17] VITALS: BP 135/74
--- NOTE | 2019-12-23 15:08 | PATH ---
[facility] [address] [place] [address] PATHOLOGY RPT PROCEDURE Name: EMMA FLANNERY Room #: REG [facility]#: [id number] Admission: 12/22/19 Date of : 51 Discharge: Report #: [id number] Path Case #: [id number] Note [facility] Accession Number: [id number] TESTS RESULT FLAG UNITS REF RANGE LAB Clinician Provided Cytology Information No. of containers..01 Other (Miscellaneous) Source: BRUTH TIP RLL DIAGNOSIS: BRUTH TIP RLL INADEQUATE, INSUFFICIENT CELLS FOR STUDY. ESSENTIALLY ACELLULAR SPECIMEN. Pathologist ICD10: 02 R06.02 Signed out by: Kylah Fried MD, Pathologist NPI- [id number] Performed by: Kelly Bennett Director Of Career Resources ([facility]) Gross description: 1 FERMÍN /STEPH 12/22/2019 1738 Local FLAG LEGEND: L-Low Normal,H-High Normal,LL-Alert Low,HH-Alert High <-Panic Low,>-Panic High,A-Abnormal,AA-Critical Abnormal Performed at: [address] [place] [address] Zechariah Schulte MD, [address] [address] Kylah Fried MD, Performed at: [address], [place], [place] [id number] MD Zechariah Schulte MD Phone: [phone]
--- NOTE | 2019-12-23 16:07 | PATH ---
[facility] [address] [place] [address] PATHOLOGY RPT PROCEDURE Name: EMMA FLANNERY Room #: REG [facility]#: [id number] Admission: 12/22/19 Date of : 51 Discharge: Report #: [id number] Path Case #: [id number] Note [facility] Accession Number: [id number] TESTS RESULT FLAG UNITS REF RANGE LAB Clinician Provided Cytology Information No. of containers..01 Other (Miscellaneous) Source: NEEDLE BIOPSY RLL DIAGNOSIS: NEEDLE BIOPSY RLL INADEQUATE, INSUFFICIENT CELLS FOR STUDY. ESSENTIALLY ACELLULAR SPECIMEN. Pathologist ICD10: 02 R91.8 Signed out by: Kylah Fried MD, Pathologist NPI- [id number] Performed by: Kelly Bennett, Transportation Job Titles ([facility]) Gross description: 10 21 FERMÍN /STEPH 12/22/2019 1745 Local FLAG LEGEND: L-Low Normal,H-High Normal,LL-Alert Low,HH-Alert High <-Panic Low,>-Panic High,A-Abnormal,AA-Critical Abnormal Performed at: [address] [place] [address] Zechariah Schulte MD, [address] [address] Kylah Fried MD, Performed at: [address], [place], [place] [id number] MD Zechariah Schulte MD Phone: [phone]
--- NOTE | 2019-12-23 16:07 | PATH ---
[facility] [address] [place] [address] PATHOLOGY RPT PROCEDURE Name: EMMA FLANNERY Room #: REG ROLY [facility].#: [id number] Admission: 12/22/19 Date of : 51 Discharge: Report #: [id number] Path Case #: [id number] Note [facility] Accession Number: [id number] TESTS RESULT FLAG UNITS REF RANGE LAB Clinician Provided Cytology Information No. of containers..01 Slide Source: 01 BRUSHING RLL DIAGNOSIS: 02 BRUSHING RLL NEGATIVE FOR MALIGNANT EPITHELIAL CELLS. NORMAL BRONCHIAL CELLS AND MACROPHAGES ARE PRESENT. PULMONARY MACROPHAGES (DUST CELLS) ARE PRESENT. RARE GROUPS OF METAPLASTIC SQUAMOUS EPITHELIAL CELLS PRESENT. Pathologist ICD10: 02 R91.8 Signed out by: Kylah Fried MD, Pathologist NPI- [id number] Performed by: Kelly Bennett, String Winding Machine Operator ([facility]) Gross description: 4 FX /LCS 12/22/2019 1740 Local FLAG LEGEND: L-Low Normal,H-High Normal,LL-Alert Low,HH-Alert High <-Panic Low,>-Panic High,A-Abnormal,AA-Critical Abnormal Performed at: [address] [place] [address] Zechariah Schulte MD, [address] [address] Kylah Fried MD, Performed at: [address], [place], [place] [id number] MD Zechariah Schulte MD Phone: [phone]
--- NOTE | 2019-12-23 16:07 | PATH ---
[facility] [address] [place] [address] PATHOLOGY RPT PROCEDURE Name: EMMA FLANNERY Room #: REG [facility]#: [id number] Admission: 12/22/19 Date of : 51 Discharge: Report #: [id number] Path Case #: [id number] Note [facility] Accession Number: [id number] TESTS RESULT FLAG UNITS REF RANGE LAB Clinician Provided Cytology Information No. of containers..01 Other (Miscellaneous) Source: 01 MICRO BRUSH TIP RLL DIAGNOSIS: 02 MICRO BRUSH TIP RLL NEGATIVE FOR MALIGNANT CELLS. REACTIVE BRONCHIAL CELLS ARE PRESENT. PULMONARY MACROPHAGES PRESENT, INDICATIVE OF LOWER RESPIRATORY TRACT SAMPLING. Pathologist ICD10: 02 R91.8 Signed out by: 02 Kylah Fried MD, Pathologist NPI- [id number] Performed by: 01 Kelly Bennett Production Engineer ([facility]) Gross description: 01 1 TP /STEPH 12/22/2019 1743 Local FLAG LEGEND: L-Low Normal,H-High Normal,LL-Alert Low,HH-Alert High <-Panic Low,>-Panic High,A-Abnormal,AA-Critical Abnormal Performed at: [address] [place] [address] Zechariah Schulte MD, [address] [address] Kylah Fried MD, Performed at: [address], [place], [place] [id number] MD Zechariah Schulte MD Phone: [phone]
--- NOTE | 2019-12-23 16:07 | PATH ---
[facility] [address] [place] [address] PATHOLOGY RPT PROCEDURE Name: EMMA UMANA Room #: REG [facility] M.R.#: [id number] Admission: 12/22/19 Date of : 51 Discharge: Report #: [id number] Path Case #: [id number] LCA Accession Number: [id number] . 01 Material submitted: . lung - RLL NEEDLE BIOPSY. Modifiers: right, lower . 01 Clinical history: . SOB . 02 Diagnosis: Bronchus, right lower lobe, biopsy: - Scant to rare fragments of benign cartilage, fibrous tissue, and detached reactive bronchoepithelial cells. - Negative for malignant epithelial cells. (IUV/db; 12/23/2019) LBQ 12/23/2019 1552 Local . 02 Electronically signed: . Kylah Fried MD, Pathologist NPI- [id number] . 01 Gross description: . The specimen is received in formalin, labeled "Emma Umana, biopsy". The specimen is additionally labeled on the requisition as, "RLL". Received is a minute fragment of pale salguero soft tissue measuring 0.1 cm in maximum dimensions. The specimen is filtered and entirely submitted in cassette A1. (CAA; 12/22/2019) QAC/QAC 12/22/2019 1542 Local . 02 Pathologist provided ICD-10: R06.02 . 02 CPT . 162363 Specimen Comment: A courtesy copy of this report has been sent to [phone] Specimen Comment: [phone] Specimen Comment: Report sent to / DR LINDSAY Performed at: [address] [id number] MD Zechariah Schulte MD Phone: [phone] Performed at: [address] [id number] [address] [address] PATHOLOGY RPT PROCEDURE Name: EMMA UMANA Room #: REG ROLY Tobar#: [id number] Admission: 12/22/19 Date of : 51 Discharge: Report #: [id number] Path Case #: [id number] MD Kylah Fried MD Phone: [phone]
== END ==
LOC: PUL 06:26 → EDSTATUS 06:48 → OR 06:50 → PUL 12:31 → EDSTATUS 14:53 → PUL 14:54
DX: J18.1 Lobar pneumonia, unspecified organism (principal); R91.8 Other nonspecific abnormal finding of lung field
CPT/HCPCS: 50010; 62110; 62900; 70005

== ENCOUNTER → 2020-01-15 | Outpatient (CLI) | payer OTHER ==
[~2020-01-15] VITALS: Ht 165.1 cm; Wt 69.9 kg
[~2020-01-15] MED LIST changes: +TRAMADOL 50 MG50 MG PO
[2020-01-15 10:22] VITALS: BP 144/91
--- NOTE | 2020-01-15 10:28 | NUR ---
Pain Clinic Assessment: 1. History of Osteoarthritis: BACK Right Lower Extremity Left Upper Extremity Left Lower Extremity Right Upper Extremity History of Rheumatoid Arthritis: DENIES 2. Height: 5 ft. 5 in. 165.1 cm. Weight: 154.0 lb. oz. 69.854 kg. Patient's BMI: 25.6 3. Vital Signs: BP: 144/91 Pulse: 97 Resp: 14 Temp: 02 Sat: 97 ECG Mon: 4. Pain Intensity: 4-5 5. Fall Risk: Dizziness: N Needs help standing or walking: N Fallen in the last 3 months: N Fall risk comments: 6. Patient on Blood Thinner: None 7. History of Hypertension: Y 8. Opioid Therapy greater than 6 weeks: N Opiate Contract Signed: 9. Risk Assessment Tool Provided: LOW RISK 0/3 10. Functional Assessment Tool: 49/70 11. Recreational Drug Use: Never Drug Type: Tobacco Use: Never Smoker Tobacco Type: Amount or Packs/day: How Many Years: Alcohol Use: Yes Frequency: Weekly Quant:
--- NOTE | 2020-02-03 15:15 | HPC ---
[facility] [place] [address] PAIN MANAGEMENT CONSULTATION Name: EMMA FLANNERY Room #: REG [facility]#: [id number] Admission: 01/15/20 Attend Phys: Meron Juarez MD Discharge: Date of : 51 Report #: [id number] THIS REPORT FOR: cc: Wild Torres MD,Wild Juarez,Meron Gu MD ~ CC: Meron Torres DATE OF SERVICE: 01/15/2020 CHIEF COMPLAINT: Back pain is better. HISTORY: The patient is a 64-year-old female who has been followed in the pain clinic because of lumbar radiculopathy. She has undergone epidural steroid injections in the past and found that they have been beneficial. She feels today that her pain is significantly better. It does vacillate back and forth between 4-5. Today, she is not having any significant pain. She has returned to evaluate her options. She has had a number of epidural injections recently. She has had no complications. ALLERGIES: PENICILLIN. CURRENT MEDICATIONS: Trelegy Ellipta 100/62.5/25, albuterol inhaler 2 puffs, amlodipine 10 mg, lacosamide 500 mg, vitamins, Estrace 0.5 mg, Zofran 4 mg and Protonix 40 mg. The patient has used ibuprofen, but notes some GI upset. PAIN CLINIC ASSESSMENT/PQRS: 1. The patient has arthritic changes in her back. It involves the right lower portion of her back with some pain that has radiated down to the left lower extremity and the right lower extremity. The patient feels that her pain is improving with less discomfort today. 2. Height 5 feet 5 inches, weight 154 pounds, BMI is 25.6. 3. Vital Signs: Blood pressure 144/91, pulse 97, respiratory rate 14, room air saturation 97%. 4. Pain intensity can rise to 4-5/10. 5. Fall risk. The intensity of pain today is relatively marginal at about 0. 6. Fall risk. The patient has not fallen in the last 3 months. 7. Blood thinner. The patient is not on a blood thinning medication. 8. Hypertension. The patient is being treated for hypertension. 9. Opioids greater than 6 weeks. The patient received medication from [facility] pain clinic. 10. Risk assessment tool, low for opioid use. 11. Functional assessment tool 49/70. [address] [address] PAIN MANAGEMENT CONSULTATION Name: EMMA FLANNERY Room #: REG CLI [facility]#: [id number] Admission: 01/15/20 Attend Phys: Meron Juarez MD Discharge: Date of : 51 Report #: [id number] 12. Recreational drug use: The patient denies. 13. Tobacco: The patient has never smoked. 14. Alcohol: The patient drinks alcoholic beverages on occasion. PHYSICAL EXAMINATION: GENERAL: The patient is a well-developed, well-nourished white female. Appears her stated age. She is alert and oriented x 3. Her affect is appropriate. Speech is fluent. HEENT: Normocephalic, atraumatic. Extraocular eye muscles intact. NECK: Without adenopathy or JVD. LUNGS: Generally clear. ABDOMEN: Nontender. MUSCULOSKELETAL: Upper extremity muscle strength judged to be 5-/5 for the major muscle groups in the upper extremity. The patient has pain and discomfort in the anterior portion of her groin and thigh area in the L3-L4 dermatomal distribution, not problematic today. IMPRESSION: 1. History of lumbar radiculopathy, L3-L4 dermatomal distribution on the right side, improved after epidural steroid injection. 2. History of lumbar radiculopathy, status post lumbar surgery in the past. 3. Hypertension. 4. Lung disease, history of lung cancer. 5. Gallbladder disease. 6. Stomach problems. 7. Joint disease. RECOMMENDATIONS: We discussed treatment options with the patient. Risks and benefits of an epidural injection were again discussed. At this juncture, the patient is doing reasonably well. She is not having as much problem or pain with her back. We will defer an injection at this juncture. The patient is working hours in the coronal environment. She is somewhat nervous and stressed because of the lack of PPE safety equipment. She states that she a pillowcase over her head and tied some garbage bags on her feet to try to stay as safe as possible. The patient will continue with her current medications. In the future should she need an epidural steroid injection, that option will be open. We would like to thank you for letting us participate in her care. We hope she continues to improve. <ELECTRONICALLY SIGNED> By: Meron Juarez MD 02/03/20 1515 0935 1303 Meron Juarez MD /meena
== END ==
LOC: PAIN 06:46
PROVIDERS: ATTEND Anesthesiology Pain Medicine
DX: M54.5 Low back pain (principal); I10 Essential (primary) hypertension; J98.4 Other disorders of lung; K82.9 Disease of gallbladder, unspecified; M25.80 Other specified joint disorders, unspecified joint; K31.89 Other diseases of stomach and duodenum; Z87.39 Personal history of other diseases of the musculoskeletal system and connective tissue; Z85.118 Personal history of other malignant neoplasm of bronchus and lung

== ENCOUNTER → 2020-03-07 | Outpatient (CLI) | payer OTHER | LOC: LAB 09:53 | PROVIDERS: ATTEND Nurse Practitioner | DX: R05 Cough (principal); Z20.828 Contact with and (suspected) exposure to other viral communicable diseases ==

== ENCOUNTER → 2020-04-15 | Outpatient (CLI) | payer OTHER | LOC: MRI 09:22 | PROVIDERS: ATTEND Nurse Practitioner | DX: M51.26 Other intervertebral disc displacement, lumbar region (principal); M48.061 Spinal stenosis, lumbar region without neurogenic claudication; M50.30 Other cervical disc degeneration, unspecified cervical region; M54.9 Dorsalgia, unspecified ==

== ENCOUNTER → 2020-04-25 | Outpatient (CLI) | payer OTHER | LOC: ULTRA 08:13 | PROVIDERS: ATTEND Nurse Practitioner | DX: I82.812 Embolism and thrombosis of superficial veins of left lower extremity (principal); M79.89 Other specified soft tissue disorders ==

== ENCOUNTER → 2020-05-20 | Outpatient (CLI) | payer OTHER ==
[~2020-05-20] MED LIST changes: +AFRIN15 M1 NARES; +ALLEGRA ALLERG180 MG PO; +AMBIEN 10 MG TA10 MG PO; +COLACE100 MG PO; -EAC VAG; +ESTRADIOL BUCCAL; -ESTROGEN PO; +ESTROGEN VAG; +LORCET 5-325 M1 EACH PO; +PREMARIN VAG; +PROGESTERO BUCCAL; +TIZANIDINE HCL 22 M1 PO; +VENTOLIN HFA INH8 GM INH
== END ==
LOC: LAB 10:24
PROVIDERS: ATTEND Student in an Organized Health Care Education/Training Program
DX: Z01.812 Encounter for preprocedural laboratory examination (principal); Z11.59 Encounter for screening for other viral diseases

== ENCOUNTER 2020-05-25 10:19 | Day surgery (SDC) | payer OTHER ==
[2020-05-16 09:22] LABS: ABSOLUTE NEUTROPHILS 3.4 thou/uL (1.4-8.2); BASOPHILS 0.7 % (0.0-2.0); EOSINOPHILS 3.7 % (0.0-3.0); HEMATOCRIT 36.2 % (37.0-47.0); HEMOGLOBIN 11.8 gm/dL (12.0-15.0); LYMPHOCYTES 24.8 % (24.0-44.0); MCH 28.6 pg (26.0-34.0); MCHC 32.5 g/dL (28.0-37.0); MCV 88.2 fL (80.0-100.0); MONOCYTES 11.1 % (1.0-8.0); PLATELET COUNT 314 thou/uL (150-400); POLYS 59.7 % (36.0-66.0); RDW 13.5 % (10.5-14.5); WBC 5.6 thou/uL (4.0-11.0)
[2020-05-16 09:41] LABS: ALBUMIN 3.6 g/dL (3.4-5.0); CREATININE 0.8 mg/dL (0.6-1.0); POTASSIUM 4.5 mmol/L (3.5-5.1); TOTAL BILIRUBIN 0.4 mg/dL (0.2-1.0); TOTAL PROTEIN 6.6 g/dL (6.4-8.2)
--- NOTE | 2020-05-16 10:48 | EKG ---
[facility] [place] [address] ELECTROCARDIOGRAM REPORT Name: EMMA FLANNERY Room #: PRE [facility]..#: [id number] Admission: Attend Phys: Osmel Quintanilla MD Discharge: Date of : 51 Report #: [id number] THIS REPORT FOR: cc: Wild Torres MD, Rene P. MD Couchonnal, Luis F. MD ~ THIS REPORT FOR: //name// [facility] Test Date: 2020-05-16 Test Time: 09:17:58 Pat Name: EMMA FLANNERY Department: Room: Gender: F Mortgage Loan Funder: ADAMA : 1955 Requested By: Osmel Quintanilla Order Number: [id number] MD: Wayne Banerjee Measurements Intervals Dearing Rate: 82 P: 76 WA: 173 QRS: 5 QRSD: 95 T: 43 QT: 381 QTc: 445 Interpretive Statements Sinus rhythm RSR' in V1 or V2, right VCD or RVH Baseline wander in lead(s) I,II,aVR,aVL,aVF No previous ECG available for comparison Electronically Signed On 05-16-2020 10:48:26 CDT by Wayne Banerjee [email or web address] <ELECTRONICALLY SIGNED> By: Wayne Banerjee MD 05/16/20 1048 6 6 Wayne Banerjee MD /EPI
[~2020-05-25] VITALS: Ht 165.1 cm; Wt 64.9 kg
[~2020-05-25 10:19] MED LIST changes: -COLACE100 MG PO; -LORCET 5-325 M1 EACH PO
[2020-05-25 11:59] VITALS: BP 120/72
[2020-05-25] MEDS ORDERED: LORCET 5-325 M1 EACH PO (14:21)
[2020-05-25] MEDS ORDERED: COLACE100 MG PO (14:22)
[2020-05-25 14:35] VITALS: BP 120/72
--- NOTE | 2020-05-26 18:06 | PATH ---
[facility] [address] [place] [address] PATHOLOGY RPT PROCEDURE Name: EMMA UMANA Room #: DEP [facility] M.R.#: [id number] Admission: 05/25/20 Date of : 51 Discharge: 05/25/20 Report #: [id number] Path Case #: [id number] LCA Accession Number: [id number] . 01 Material submitted: . vertebral column - LUMBAR 3-4 DISC TISSUE AND BONE . 01 Clinician provided ICD-10: . 01 Clinical history: . Herniated disc . 02 Diagnosis: Lumbar 3-4 disc tissue and bone, disctectomy: - Fragments of reactive nucleus pulposus associated with neovascularization as well as extravasated red cells. - Fragments of reactive bone. (IUV:annemarie; 05/26/2020) MBR 05/26/2020 1425 Local . 02 Electronically signed: . Kylah Fried MD, Pathologist NPI- [id number] . 01 Gross description: . The specimen is received in formalin labeled "Emma Umana", "lumbar 3-4 disc tissue and bone". Received are multiple fragments of gritty, pale salguero bone and soft tissue measuring 2.0 x 1.5 x 0.2 cm in aggregate dimensions. The specimen is filtered and entirely submitted in cassette A1, following decalcification.([facility]; 05/25/2020) DIOR/DENIA 05/25/2020 1824 Local . 02 Pathologist provided ICD-10: Z03.89 . 02 CPT . 693221, [id number] Specimen Comment: A courtesy copy of this report has been sent to [phone] Specimen Comment: [phone] Specimen Comment: Report sent to / Performed at: [address] [id number] MD Zechariah Schulte MD Phone: [phone] Performed at: [address] [address] PATHOLOGY RPT PROCEDURE Name: EMMA UMANA Room #: DEP [facility] M.Kameron.#: [id number] Admission: 05/25/20 Date of : 51 Discharge: 05/25/20 Report #: [id number] Path Case #: [id number] [address] [id number] MD Kylah Fried MD Phone: [phone]
--- NOTE | 2020-05-30 10:08 | H ---
[facility] [place] [address] HISTORY AND PHYSICAL Name: EMMA FLANNERY Room #: DEP [facility].#: [id number] Admission: 05/25/20 Attend Phys: Osmel Quintanilla MD Discharge: 05/25/20 Date of : 51 Report #: [id number] THIS REPORT FOR: cc: Wild Torres MD, Rene P. MD Holladay, Frank P. MD ~ CC: Osmel Torres DATE OF SERVICE: 05/25/2020 HISTORY OF PRESENT ILLNESS: The patient is a 64-year-old woman who is having difficulty with low back pain and pain that radiates to her right hip and anterior thigh. The pain can reach 10/10. Activity increases her pain. Rest helps. She has had epidural steroid injections with no lasting relief. She takes tramadol as needed. The problem began in January 2019. She also underwent physical therapy, which was not of benefit. CURRENT MEDICATIONS: Albuterol, amlodipine, Benadryl, estradiol, fluticasone, Mucinex, Zofran, pantoprazole, tramadol and scopolamine. PAST MEDICAL HISTORY: COPD, lung cancer, hypertension, anemia, allergies, asthma. PAST SURGICAL HISTORY: T and A, laminectomy of L5-S1 in 1991, hysterectomy, laparoscopic cholecystectomy, gastric bypass. 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 Does not smoke. Drinks two alcoholic beverages per day. ALLERGIES: PENICILLIN. REVIEW OF SYSTEMS: A 12-point review of systems was performed and is noncontributory except that mentioned above. PHYSICAL EXAMINATION: GENERAL: Alert, pleasant, in no acute distress. HEENT: Head normocephalic, atraumatic. EXTREMITIES: Warm and dry, well healed lumbar incision. BACK: Kbuv-jq-majuoeiu tenderness of the lower lumbar spine to palpation. MUSCULOSKELETAL: Lumbar range of motion is restricted, normal range of motion of the lower extremities bilaterally. EXTREMITIES: No clubbing, cyanosis or edema. NEUROLOGIC: Alert and oriented x 3. Strength is 5/5 in the bilateral lower extremities, sensory intact to light touch in the lower extremities bilaterally, reflexes present and symmetric in the lower extremities bilaterally, positive [facility] [address] [place] [address] HISTORY AND PHYSICAL Name: EMMA FLANNERY Room #: [facility]#: [id number] Admission: 05/25/20 Attend Phys: Osmel Quintanilla MD Discharge: 05/25/20 Date of : 51 Report #: [id number] straight leg raising on the right, normal gait. IMAGING: I reviewed a lumbar MRI scan from 04/15/2020. There are moderately severe lumbar degenerative changes throughout. L3-L4 on the right side, there is a paracentral disk protrusion which appears to decompress the L4 root. ASSESSMENT AND PLAN: The problem has been present for more than a year. She has failed to improve with physical therapy as well as lumbar epidural steroid injections. I recommended lumbar microsurgical diskectomy at L3-L4 on the right. We spoke about the surgery including the technique, risk and expected postoperative course. She would like to proceed. We are going to make the arrangements. <ELECTRONICALLY SIGNED> By: Osmel Quintanilla MD 05/30/20 1008 0713 0803 Osmel Quintanilla MD /nt
--- NOTE | 2020-05-30 10:18 | O ---
[facility] [place] [address] OPERATIVE REPORT Name: EMMA FLANNERY Room #: DEP [facility]#: [id number] Admission: 05/25/20 Attend Phys: Osmel Quintanilla MD Discharge: 05/25/20 Date of : 51 Report #: [id number] THIS REPORT FOR: cc: Wild Torres MD, Rene P. MD Holladay, Frank P. MD ~ CC: Osmel Torres DATE OF SERVICE: 05/25/2020 PREOPERATIVE DIAGNOSIS: Herniated lumbar disc, right L3-L4 with right lumbar radiculopathy. POSTOPERATIVE DIAGNOSIS: Herniated disc, right L3-L4 plus proximal foraminal disc herniation, right L3-L4. OPERATION PERFORMED: Hemilaminotomy and medial facet exposure with microdiscectomy L3-L4, right. SURGEON: Osmel Quintanilla M.D. CHANGE PERSON: LILLIE Tobin assisted with the exposure to microdiscectomy as well as the closure. The operation was done with EMG monitoring, SSEP monitoring, fluoroscopy, microscopic dissection. OPERATIVE INDICATIONS: The patient is a very pleasant 64-year-old who developed intractable back and right leg pain in the anterior and anteromedial thigh and right hip. On imaging studies, revealed an HNP at L3-L4 on the right and I recommended lumbar microsurgery. I spoke about the surgery, the risk, technique and expected postoperative course and she wished to go ahead. DESCRIPTION OF PROCEDURE: Following general endotracheal anesthesia, the patient was positioned prone on the Jason table. Lumbar region prepped and draped in standard fashion. CLIVE hose and AV impulse boots were applied for DVT prophylaxis. Microscope was draped. Fluoroscopy was draped and brought into the field. Monitoring was established. Vancomycin 1 gram was given an hour prior to initiation of surgery. Using fluoroscopic guidance, a midline incision was made incorporating her previous incision done many years ago for an L5-S1 disc surgery. I dissected down through subcutaneous tissue and reflected the paraspinal muscles and placed Alexis microdisk retractor, brought in the microscope. Following my position fluoroscopically, I burred down a generous hemilaminotomy and then trimmed away ligamentum flavum, exposed the dura and the exiting L4 [address] [address] OPERATIVE REPORT Name: EMMA FLANNERY Room #: DEP [facility].#: [id number] Admission: 05/25/20 Attend Phys: Osmel Quintanilla MD Discharge: 05/25/20 Date of : 51 Report #: [id number] root. There was a moderately large disc herniation. I did perform a partial foraminotomy. I gently retracted the root medially, incised the ligament and annulus and began to perform a discectomy, but there was a portion of the disc that was significantly farther laterally into the neural foramen, so that I brought back the high-speed air drill and I drilled the medial portion of the foramen and I passed out this direction with a blunt hook and teased back subligamentous disc herniation. There was thickened disc which was bulging into the foramen. I removed disc with pituitary rongeurs as part of my microdiscectomy. I did enter the disc space and removed disc. I removed subligamentous disc fragment as well. As I worked, the region became very well decompressed. I irrigated copiously with antibiotic solution and obtained excellent hemostasis; however, hemostasis was excellent throughout the case. I removed the retractors, obtained hemostasis in the muscle and irrigated again. I closed the wound in layers with absorbable suture and skin was closed with 4-0 subcuticular stitch. The surgery went very well. <ELECTRONICALLY SIGNED> By: Osmel Quintanilla MD 05/30/20 1018 1416 1452 Osmel Quintanilla MD /nt
== END 2020-05-25 16:13 | disposition home or self-care (01) ==
LOC: OR 10:19 → TBA 10:26 → OR 11:43
PROVIDERS: ATTEND Neurological Surgery
DX: M51.16 Intervertebral disc disorders with radiculopathy, lumbar region (principal); M54.5 Low back pain; I10 Essential (primary) hypertension; D64.9 Anemia, unspecified; J44.9 Chronic obstructive pulmonary disease, unspecified; Z85.118 Personal history of other malignant neoplasm of bronchus and lung; Z98.890 Other specified postprocedural states; Z79.899 Other long term (current) drug therapy; Z88.0 Allergy status to penicillin
CPT/HCPCS: 50010; 50101; 50402; 50503; 50515; 50704; 50850; 51609; 51687; 51779; 53210; 54118; 55106; 56526; 56528; 56532; 56805; 62110; 62900; 70005

== ENCOUNTER → 2020-06-17 | Outpatient (CLI) | payer OTHER ==
[~2020-06-17] MED LIST changes: +COLACE100 MG PO; +LORCET 5-325 M1 EACH PO
== END ==
LOC: LAB 06-10 09:27 → EDSTATUS 06-10 12:17 → LAB 06-10 15:18
PROVIDERS: ATTEND Anesthesiology
DX: Z01.812 Encounter for preprocedural laboratory examination (principal); Z20.828 Contact with and (suspected) exposure to other viral communicable diseases

== ENCOUNTER → 2020-07-25 | Outpatient (CLI) | payer OTHER | LOC: CAT 08:29 | PROVIDERS: ATTEND Pediatrics | DX: C34.91 Malignant neoplasm of unspecified part of right bronchus or lung (principal); J44.9 Chronic obstructive pulmonary disease, unspecified; J13 Pneumonia due to Streptococcus pneumoniae; I25.10 Atherosclerotic heart disease of native coronary artery without angina pectoris; J98.11 Atelectasis; M25.78 Osteophyte, vertebrae ==

== ENCOUNTER → 2020-09-01 | Outpatient (CLI) | payer OTHER | LOC: LAB 09:48 | PROVIDERS: ATTEND Nurse Practitioner | DX: U07.1 COVID-19 (principal) ==

== ENCOUNTER → 2020-12-26 | Outpatient (CLI) | payer OTHER | LOC: RAD 11:19 | PROVIDERS: ATTEND Nurse Practitioner | DX: S00.83XA Contusion of other part of head, initial encounter (principal); X58.XXXA Exposure to other specified factors, initial encounter; Y93.89 Activity, other specified; Y92.89 Other specified places as the place of occurrence of the external cause; Y99.8 Other external cause status ==

== ENCOUNTER → 2021-02-21 | Outpatient (CLI) | payer OTHER | LOC: CAT 14:36 | PROVIDERS: ATTEND Pediatrics | DX: C34.91 Malignant neoplasm of unspecified part of right bronchus or lung (principal); R05 Cough; J47.9 Bronchiectasis, uncomplicated ==

== ENCOUNTER → 2021-05-12 | Outpatient (CLI) | payer OTHER ==
[~2021-05-12] VITALS: Ht 165.1 cm; Wt 64.4 kg
[~2021-05-12] MED LIST changes: +FUSION PLUS CA1 EACH SUBLING
--- NOTE | ~2021-05-12 | P ---
[facility] [place] [address] PROCEDURE REPORT Name: EMMA FLANNERY Room #: REG [facility] Amadou#: [id number] Admission: 05/12/21 Attend Phys: Cristopher Krishna Discharge: Date of : 51 Report #: [id number] THIS REPORT FOR: cc: Wild Torres MD, Rene P. MD McElhinney, Christian C. MD ~ cc: Wild Torres MD DATE OF SERVICE: 05/12/2021 PROCEDURE PERFORMED: Upper endoscopy with biopsies. HISTORY OF PRESENT ILLNESS: The patient is a 65-year-old female who has had a previous history of gastric bypass surgery, was taking Protonix for many years, began taking meloxicam for arthritis type pain for approximately seven months; however, on that medication, was having significant dyspepsia and abdominal pain despite being on PPI therapy. She has now been off her meloxicam for 8 weeks and is also off her Protonix. She denies any further abdominal pain. She denies any heartburn, dysphagia, nausea, or vomiting. Plan is for upper endoscopy. DESCRIPTION OF PROCEDURE: The risks and benefits of the procedure were explained to the patient, those risks including but not limited to bleeding, perforation, and the risk of sedation. She understood these risks and gave informed consent. Sedation was given using propofol per Anesthesia. Next, using a standard Olympus upper endoscope, the scope was placed in the patient's mouth and advanced under direct vision through the esophagus, stomach, and through the anastomosis into the jejunum. The larynx was normal in appearance. The esophagus was normal throughout. The GE junction was normal. Upon entering the stomach, a small gastric remnant was noted consistent with her previous bypass surgery. There was a mild gastritis. No evidence of ulcerations or erosions. Biopsies were obtained to rule out H. pylori. The surgical anastomosis was well healed. No evidence of ulceration. I was able to advance the scope well into the jejunum, all of which was normal. At this point, the scope was then withdrawn and the procedure terminated. The patient tolerated the procedure well. IMPRESSION: 1. Surgical changes consistent with Duncan-en-Y gastric bypass surgery. 2. Mild gastritis. No evidence of bleeding. No evidence of ulcerations. RECOMMENDATIONS: 1. Await biopsy results. 2. Could consider the patient restarting a different NSAID for her arthritic type pain. [address] [address] PROCEDURE REPORT Name: EMMA FLANNERY Room #: REG [facility] Tobar#: [id number] Admission: 05/12/21 Attend Phys: Cristopher Krishna Discharge: Date of : 51 Report #: [id number] Thank you for allowing me to participate in her care. By: 0931 20 Cristopher Stevens MD /nt
--- NOTE | 2021-05-15 18:06 | PATH ---
[facility] [address] [place] [address] PATHOLOGY RPT PROCEDURE Name: EMMA UMANA Room #: REG ROLY Tobar#: [id number] Admission: 05/12/21 Date of : 51 Discharge: Report #: [id number] Path Case #: [id number] [facility] Accession Number: [id number] . 01 Material submitted: . gastrointestinal site - GASTRIC BIOPSY R/O H. PYLORI . 01 Clinical history: . EGD/DYSPEPSIA . 02 Diagnosis: Gastric mucosa, gastric R/O H. pylori, endoscopic biopsy: - Mild chronic active gastritis. - One fragment showing abundant muciphages within lamina propria. - Two fragments of small bowel-type mucosa with intestinal metaplasia. - Negative for atrophy or dysplasia. - Negative for Helicobacter pylori (properly controlled immunohistochemical stain performed. (IUV:amauri; 05/15/2021) . . . S 05/15/2021 1536 Local . 02 Electronically signed: . Kylah Fried MD, Pathologist NPI- [id number] . 01 Gross description: . The specimen is received in formalin, labeled "Emma Umana, gastric biopsy". Received are multiple segments of pale salguero tissue ranging in size from 0.2-0.4 cm in maximum dimensions. The specimen is submitted entirely in cassette A1. (CAA; 05/13/2021) QAC/QA 05/13/2021 1748 Local . 02 Pathologist provided ICD-10: K29.50 . 02 CPT . 208377, [id number] Specimen Comment: A courtesy copy of this report has been sent to [phone] Specimen Comment: [phone], Specimen Comment: Report sent to , DR MAYBERRY / DR LINDSAY Performed at: [address] [address] PATHOLOGY RPT PROCEDURE Name: EMMA UMANA Room #: REG [facility].#: [id number] Admission: 05/12/21 Date of : 51 Discharge: Report #: [id number] Path Case #: [id number] [address] [id number] MD Cal Munguia MD Phone: [phone] Performed at: [address] [id number] MD Kylah Fried MD Phone: [phone]
== END | disposition home or self-care (01) ==
LOC: GI 08:20
PROVIDERS: ATTEND Specialist
DX: R10.13 Epigastric pain (principal); K29.50 Unspecified chronic gastritis without bleeding; Z98.84 Bariatric surgery status; I10 Essential (primary) hypertension; Z85.118 Personal history of other malignant neoplasm of bronchus and lung; Z98.890 Other specified postprocedural states; Z79.899 Other long term (current) drug therapy; Z90.710 Acquired absence of both cervix and uterus; Z90.49 Acquired absence of other specified parts of digestive tract; Z88.0 Allergy status to penicillin; Z88.8 Allergy status to other drugs, medicaments and biological substances
CPT/HCPCS: 62110; 62900

== ENCOUNTER 2021-06-26 21:21 | Emergency (ER) | payer OTHER ==
[~2021-06-26] VITALS: Ht 165.1 cm; Wt 56.7 kg
[2021-06-26 21:25] VITALS: BP 132/81
[2021-06-26] MEDS ORDERED: ULTRAM 50MG TAB50 MG PO (22:04)
== END 2021-06-26 22:04 | disposition home or self-care (01) ==
LOC: ER 21:21
DX: S62.396A Other fracture of fifth metacarpal bone, right hand, initial encounter for closed fracture (principal); K21.9 Gastro-esophageal reflux disease without esophagitis; I10 Essential (primary) hypertension; Z85.118 Personal history of other malignant neoplasm of bronchus and lung; Z90.711 Acquired absence of uterus with remaining cervical stump; Z98.890 Other specified postprocedural states; Z79.51 Long term (current) use of inhaled steroids; Z79.899 Other long term (current) drug therapy; Z88.0 Allergy status to penicillin; Z88.8 Allergy status to other drugs, medicaments and biological substances; V29.9XXA Motorcycle rider (driver) (passenger) injured in unspecified traffic accident, initial encounter; Y93.89 Activity, other specified; Y92.89 Other specified places as the place of occurrence of the external cause; Y99.8 Other external cause status

== ENCOUNTER → 2021-09-18 | Outpatient (CLI) | payer OTHER ==
[~2021-09-18] MED LIST changes: +ULTRAM 50MG TAB50 MG PO
[2021-09-18 14:06] LABS: ABSOLUTE NEUTROPHILS 3.3 thou/uL (1.4-8.2); BASOPHILS 1.1 % (0.0-2.0); EOSINOPHILS 3.7 % (0.0-3.0); HEMATOCRIT 39.6 % (37.0-47.0); LYMPHOCYTES 28.8 % (24.0-44.0); MCH 29.4 pg (26.0-34.0); MCHC 32.7 g/dL (28.0-37.0); MCV 89.9 fL (80.0-100.0); MONOCYTES 11.6 % (1.0-8.0); PLATELET COUNT 317 thou/uL (150-400); POLYS 54.8 % (36.0-66.0); RDW 14.3 % (10.5-14.5); WBC 6.1 thou/uL (4.0-11.0)
[2021-09-18 14:23] LABS: ALBUMIN 3.9 g/dL (3.4-5.0); ANION GAP 7 mmol/L (7-16); BUN 12 mg/dL (7-18); CALCIUM 9.4 mg/dL (8.5-10.1); CHLORIDE 101 mmol/L (98-107); CHOLESTEROL 238 mg/dL (<200); CO2 29 mmol/L (21-32); CREATININE 0.8 mg/dL (0.6-1.0); GLUCOSE 84 mg/dL (74-106); HDL CHOLESTEROL 97 mg/dL (>40); LDL CHOLESTEROL 110 mg/dL (<100); POTASSIUM 4.1 mmol/L (3.5-5.1); SGOT 17 U/L (15-37); SGPT 18 U/L (30-65); SODIUM 137 mmol/L (136-145); TC:HDL 2.5 Ratio (Not establshd); TOTAL BILIRUBIN 0.2 mg/dL (0.2-1.0); TOTAL PROTEIN 7.7 g/dL (6.4-8.2); TRIGLYCERIDE 159 mg/dL (<150); VLDL 32 mg/dL (<40)
== END ==
LOC: LAB 13:33
PROVIDERS: ATTEND Family Medicine
DX: Z13.220 Encounter for screening for lipoid disorders (principal); Z00.00 Encounter for general adult medical examination without abnormal findings; R53.83 Other fatigue; E55.9 Vitamin D deficiency, unspecified

== ENCOUNTER → 2021-11-10 | Outpatient (CLI) | payer OTHER | LOC: MRI 13:35 | PROVIDERS: ATTEND Family Medicine | DX: M51.17 Intervertebral disc disorders with radiculopathy, lumbosacral region (principal); M48.07 Spinal stenosis, lumbosacral region; M47.27 Other spondylosis with radiculopathy, lumbosacral region; M96.1 Postlaminectomy syndrome, not elsewhere classified ==